=== PATIENT | male | born 1945 | race Caucasian/White ===

== ENCOUNTER 2017-02-05 15:34 | Inpatient (IN) | payer MEDICARE, OTHER ==
[~2017-02-05] VITALS: Ht 174.6 cm; Wt 117.3 kg
[~2017-02-05 15:34] MED LIST: ASPI-556 PO; CHOL200016 PO; DOCU100C19 PO; FOLI1 PO; LISI-662 PO; METF500T4 PO; SIMV-260 PO; SITA100 PO; TRIF10 PO; VERA240SR PO
[2017-02-05 15:50] VITALS: BP 126/69
[2017-02-05] MEDS ORDERED: MAGNESIUM OXIDE 400 MG TABLET PO PRN (18:00)
[2017-02-05] MEDS ORDERED: POTASSIUM CHL 10 MEQ/WATER 50 ML IV PRN (18:00)
[2017-02-05] MEDS ORDERED: DEXTROSE 50%-WATER 25 GM/50 ML SYRINGE IVP PRN (18:00)
[2017-02-05] MEDS ORDERED: ALBUTEROL SULFATE 2.5 MG/0.5 ML NEB SOLUTION NEB PRN (18:00)
[2017-02-05] MEDS ORDERED: MAGNESIUM SULFATE 4 GM/WATER 100 ML IV PRN (18:00)
[2017-02-05] MEDS ORDERED: POTASSIUM CHLORIDE 20 MEQ ER TABLET PO PRN (18:00)
[2017-02-05] MEDS ORDERED: MAGNESIUM SULFATE 2 GM in DEXTROSE 5%-WATER 50 ML IV PRN (18:00)
[2017-02-05 18:12] LABS: BASOPHILS % (AUTO) 0.4 % (0.0-2.0); EOSINOPHILS % (AUTO) 3.1 % (1.0-6.0); HEMATOCRIT 42.7 % (41-53); HEMOGLOBIN 14.5 g/dL (13.5-17.5); LYMPHOCYTES # (AUTO) 1.5 K/uL (1.0-4.8); LYMPHOCYTES % (AUTO) 22.4 % (22.0-44.0); MEAN CORPUSCULAR HEMOGLOBIN 31.7 pg (26.0-34.0); MEAN CORPUSCULAR VOLUME 93 fL (80-100); MONOCYTES # (AUTO) 0.7 K/uL (0.1-1.0); MONOCYTES % (AUTO) 10.3 % (2.0-9.0); NEUTROPHILS # (AUTO) 4.3 K/uL (1.8-7.7); NEUTROPHILS % (AUTO) 63.8 % (40.0-70.0); PLATELET COUNT (AUTO) 154 K/uL (150-450); RED BLOOD CELL COUNT(AUTO) 4.58 MIL/uL (4.50-5.90); RED CELL DISTRIBUTION WIDTH 13.8 % (11.5-14.5); WHITE BLOOD COUNT (AUTO) 6.7 K/uL (4.5-11.0)
[2017-02-05] MEDS: INSULIN ASPART 100 UNITS/ML SQ PRN ×2 (18:14→20:06)
[2017-02-05 18:17] LABS: ANION GAP 8 mmol/L (8-16); CALCIUM, TOTAL 8.9 mg/dL (8.8-10.5); CARBON DIOXIDE 28 mmol/L (22-29); CHLORIDE 106 mmol/L (98-107); CREATININE 1.19 mg/dL (0.60-1.30); GLOMERULAR FILTR. RATE CALC > 60 mL/min (>60); POTASSIUM 3.8 mmol/L (3.5-5.1); SODIUM SERUM 142 mmol/L (136-145); UREA NITROGEN, BLOOD 18 mg/dL (7-18)
[2017-02-05 18:22] LABS: ALBUMIN 3.3 g/dL (3.4-5.0); PHOSPHORUS 4.4 mg/dL (2.5-4.9)
[2017-02-05] MEDS: MethylPREDNISolone SOD SUCC 40 MG/ML VIAL IVP SCH ×2 (18:23→23:10)
[2017-02-05 19:35] VITALS: BP 119/73
[2017-02-05] MEDS ORDERED: PERMETHRIN 5% 60 GM CREAM TP ONE (20:00)
[2017-02-05] MEDS: INSULIN DETEMIR 100 UNITS/ML SQ SCH (20:05)
[2017-02-06] VITALS (7 sets, daily range): BP systolic 114–137; BP diastolic 54–76
[2017-02-06] MEDS: MethylPREDNISolone SOD SUCC 40 MG/ML VIAL IVP SCH ×3 (05:13→17:41)
[2017-02-06] MEDS: INSULIN ASPART 100 UNITS/ML SQ PRN ×4 (05:16→20:40)
[2017-02-06] MEDS: VERAPAMIL HCL 240 MG ER TABLET PO SCH (08:26)
[2017-02-06] MEDS: CHOLECALCIFEROL (VIT D3) 2,000 UNITS TABLET PO SCH (08:26)
[2017-02-06] MEDS: LISINOPRIL 20 MG TABLET PO SCH (08:26)
[2017-02-06] MEDS: TRIFLUOPERAZINE HCL 10 MG TABLET PO SCH (08:26)
[2017-02-06] MEDS: DOCUSATE SODIUM 100 MG CAPSULE PO SCH ×2 (08:26→20:06)
[2017-02-06] MEDS: ASPIRIN 81 MG EC TABLET PO SCH (08:26)
[2017-02-06] MEDS: FOLIC ACID 1 MG TABLET PO SCH (08:26)
[2017-02-06] MEDS: ENOXAPARIN SODIUM 40 MG/0.4 ML PF SYRINGE SQ SCH (08:26)
[2017-02-06] MEDS: SitaGLIPtin PHOSPHATE 100 MG TABLET PO SCH (08:26)
[2017-02-06] MEDS: MetFORMIN HCL 500 MG TABLET PO SCH ×2 (08:31→17:32)
[2017-02-06 14:44] LABS: GLUCOSE COMMENT 1 Received Meds; GLUCOSE,POINT OF CARE 160 MG/DL (70-110)
[2017-02-06 14:44] LABS: GLUCOSE,POINT OF CARE 176 MG/DL (70-110)
[2017-02-06 14:44] LABS: GLUCOSE,POINT OF CARE 235 MG/DL (70-110)
[2017-02-06 14:44] LABS: GLUCOSE COMMENT 1 Received Meds; GLUCOSE,POINT OF CARE 260 MG/DL (70-110)
[2017-02-06] MEDS: SIMVASTATIN 20 MG TABLET PO SCH (20:04)
[2017-02-06] MEDS: INSULIN DETEMIR 100 UNITS/ML SQ SCH (20:41)
[2017-02-07] MEDS: MethylPREDNISolone SOD SUCC 40 MG/ML VIAL IVP SCH ×4 (01:05→17:55)
[2017-02-07 04:47] VITALS: BP 110/61
[2017-02-07] MEDS: INSULIN ASPART 100 UNITS/ML SQ PRN ×4 (06:21→21:06)
[2017-02-07 07:43] LABS: GLUCOSE COMMENT 1 Received Meds; GLUCOSE,POINT OF CARE 241 MG/DL (70-110)
[2017-02-07 07:43] LABS: GLUCOSE COMMENT 1 Received Meds; GLUCOSE,POINT OF CARE 278 MG/DL (70-110)
[2017-02-07 07:43] LABS: GLUCOSE COMMENT 1 Received Meds; GLUCOSE,POINT OF CARE 235 MG/DL (70-110)
[2017-02-07 08:01] VITALS: BP 102/66
[2017-02-07] MEDS: SitaGLIPtin PHOSPHATE 100 MG TABLET PO SCH (08:18)
[2017-02-07] MEDS: CHOLECALCIFEROL (VIT D3) 2,000 UNITS TABLET PO SCH (08:18)
[2017-02-07] MEDS: TRIFLUOPERAZINE HCL 10 MG TABLET PO SCH (08:18)
[2017-02-07] MEDS: MetFORMIN HCL 500 MG TABLET PO SCH ×2 (08:18→17:55)
[2017-02-07] MEDS: DOCUSATE SODIUM 100 MG CAPSULE PO SCH ×2 (08:19→20:57)
[2017-02-07] MEDS: LISINOPRIL 20 MG TABLET PO SCH (08:19)
[2017-02-07] MEDS: VERAPAMIL HCL 240 MG ER TABLET PO SCH (08:19)
[2017-02-07] MEDS: ASPIRIN 81 MG EC TABLET PO SCH (08:19)
[2017-02-07] MEDS: FOLIC ACID 1 MG TABLET PO SCH (08:19)
[2017-02-07] MEDS: ENOXAPARIN SODIUM 40 MG/0.4 ML PF SYRINGE SQ SCH (08:20)
[2017-02-07 11:25] VITALS: BP 103/88
[2017-02-07] MEDS ORDERED: IVERMECTIN 3 MG TABLET PO ONE (14:45)
[2017-02-07 15:28] VITALS: BP 132/63
[2017-02-07 19:40] VITALS: BP 133/81
[2017-02-07] MEDS: SIMVASTATIN 20 MG TABLET PO SCH (21:00)
[2017-02-07] MEDS: INSULIN DETEMIR 100 UNITS/ML SQ SCH (21:05)
[2017-02-07 23:46] VITALS: BP 128/74
[2017-02-08] MEDS: MethylPREDNISolone SOD SUCC 40 MG/ML VIAL IVP SCH ×5 (00:53→23:21)
[2017-02-08 01:02] LABS: GLUCOSE COMMENT 1 Received Meds; GLUCOSE,POINT OF CARE 187 MG/DL (70-110)
[2017-02-08 01:07] LABS: GLUCOSE COMMENT 1 Received Meds; GLUCOSE,POINT OF CARE 266 MG/DL (70-110)
[2017-02-08 05:04] VITALS: BP 120/77
[2017-02-08] MEDS: INSULIN ASPART 100 UNITS/ML SQ PRN ×4 (06:26→20:42)
[2017-02-08 07:03] LABS: ALANINE AMINOTRANSFERASE 18 U/L (12-78); ALBUMIN 3.2 g/dL (3.4-5.0); ANION GAP 9 mmol/L (8-16); ASPARTATE AMINOTRANSFERASE 12 U/L (15-37); BILIRUBIN,TOTAL 0.2 mg/dL (0.1-1.0); CALCIUM, TOTAL 8.9 mg/dL (8.8-10.5); CARBON DIOXIDE 26 mmol/L (22-29); CHLORIDE 102 mmol/L (98-107); CREATININE 0.99 mg/dL (0.60-1.30); GLOMERULAR FILTR. RATE CALC > 60 mL/min (>60); POTASSIUM 4.8 mmol/L (3.5-5.1); SODIUM SERUM 137 mmol/L (136-145); TOTAL PROTEIN, SERUM 6.5 g/dL (6.4-8.2); UREA NITROGEN, BLOOD 22 mg/dL (7-18)
[2017-02-08 07:33] LABS: GLUCOSE COMMENT 1 Received Meds; GLUCOSE,POINT OF CARE 273 MG/DL (70-110)
[2017-02-08 07:46] LABS: EOSINOPHILS % (AUTO) 0 % (1.0-6.0); HEMATOCRIT 44.6 % (41-53); HEMOGLOBIN 15.1 g/dL (13.5-17.5); LYMPHOCYTES % (AUTO) 4.5 % (22.0-44.0); MEAN CORPUSCULAR HEMOGLOBIN 31.5 pg (26.0-34.0); MEAN CORPUSCULAR HGB CONC 33.9 G/dL (31.0-37.0); MEAN CORPUSCULAR VOLUME 93 fL (80-100); MONOCYTES % (AUTO) 3.2 % (2.0-9.0); PLATELET COUNT (AUTO) 178 K/uL (150-450); RED CELL DISTRIBUTION WIDTH 13.3 % (11.5-14.5); WHITE BLOOD COUNT (AUTO) 14.2 K/uL (4.5-11.0)
[2017-02-08 07:47] LABS: BASOPHILS % (AUTO) 0.1 % (0.0-2.0); LYMPHOCYTES # (AUTO) 0.6 K/uL (1.0-4.8); MONOCYTES # (AUTO) 0.4 K/uL (0.1-1.0); NEUTROPHILS # (AUTO) 13.1 K/uL (1.8-7.7)
[2017-02-08 07:52] LABS: NEUTROPHILS % (AUTO) 92.2 % (40.0-70.0)
[2017-02-08 07:54] VITALS: BP 123/70
[2017-02-08] MEDS: LISINOPRIL 20 MG TABLET PO SCH (07:59)
[2017-02-08] MEDS: ENOXAPARIN SODIUM 40 MG/0.4 ML PF SYRINGE SQ SCH (07:59)
[2017-02-08] MEDS: TRIFLUOPERAZINE HCL 10 MG TABLET PO SCH (08:00)
[2017-02-08] MEDS: FOLIC ACID 1 MG TABLET PO SCH (08:01)
[2017-02-08] MEDS: SitaGLIPtin PHOSPHATE 100 MG TABLET PO SCH (08:01)
[2017-02-08] MEDS: DOCUSATE SODIUM 100 MG CAPSULE PO SCH ×2 (08:01→20:46)
[2017-02-08] MEDS: ASPIRIN 81 MG EC TABLET PO SCH (08:01)
[2017-02-08] MEDS: MetFORMIN HCL 500 MG TABLET PO SCH ×2 (08:01→17:17)
[2017-02-08] MEDS: CHOLECALCIFEROL (VIT D3) 2,000 UNITS TABLET PO SCH (08:01)
[2017-02-08 11:18] VITALS: BP 94/55
[2017-02-08 15:50] VITALS: BP 100/53
[2017-02-08 19:21] VITALS: BP 129/93
[2017-02-08] MEDS ORDERED: PERMETHRIN 5% 60 GM CREAM TP ONE (20:00)
[2017-02-08] MEDS: SIMVASTATIN 20 MG TABLET PO SCH (20:40)
[2017-02-08] MEDS: INSULIN DETEMIR 100 UNITS/ML SQ SCH (20:42)
[2017-02-08] MEDS: NICOTINE 14 MG/24 HOUR PATCH TD SCH (21:32)
[2017-02-08 23:27] VITALS: BP 120/74
[2017-02-09 04:11] VITALS: BP 102/54
[2017-02-09] MEDS: INSULIN ASPART 100 UNITS/ML SQ PRN ×4 (05:09→22:23)
[2017-02-09] MEDS: MethylPREDNISolone SOD SUCC 40 MG/ML VIAL IVP SCH ×3 (05:10→17:59)
[2017-02-09 05:18] LABS: GLUCOSE COMMENT 1 Received Meds; GLUCOSE,POINT OF CARE 225 MG/DL (70-110)
[2017-02-09 05:19] LABS: GLUCOSE COMMENT 1 Received Meds; GLUCOSE,POINT OF CARE 211 MG/DL (70-110)
[2017-02-09 05:19] LABS: GLUCOSE COMMENT 1 Received Meds; GLUCOSE,POINT OF CARE 238 MG/DL (70-110)
[2017-02-09 05:19] LABS: GLUCOSE COMMENT 1 Received Meds; GLUCOSE,POINT OF CARE 283 MG/DL (70-110)
[2017-02-09 07:47] VITALS: BP 118/56
[2017-02-09] MEDS: ENOXAPARIN SODIUM 40 MG/0.4 ML PF SYRINGE SQ SCH (08:44)
[2017-02-09] MEDS: TRIFLUOPERAZINE HCL 10 MG TABLET PO SCH (08:45)
[2017-02-09] MEDS: LISINOPRIL 20 MG TABLET PO SCH (08:45)
[2017-02-09] MEDS: MetFORMIN HCL 500 MG TABLET PO SCH ×2 (08:45→17:59)
[2017-02-09] MEDS: CHOLECALCIFEROL (VIT D3) 2,000 UNITS TABLET PO SCH (08:45)
[2017-02-09] MEDS: FOLIC ACID 1 MG TABLET PO SCH (08:45)
[2017-02-09] MEDS: SitaGLIPtin PHOSPHATE 100 MG TABLET PO SCH (08:45)
[2017-02-09] MEDS: ASPIRIN 81 MG EC TABLET PO SCH (08:45)
[2017-02-09] MEDS: DOCUSATE SODIUM 100 MG CAPSULE PO SCH ×2 (08:46→22:21)
[2017-02-09] MEDS: NICOTINE 14 MG/24 HOUR PATCH TD SCH (08:46)
[2017-02-09 11:46] VITALS: BP 127/87
[2017-02-09 16:05] VITALS: BP 127/64
[2017-02-09 19:48] VITALS: BP 138/87
[2017-02-09] MEDS: SIMVASTATIN 20 MG TABLET PO SCH (22:21)
[2017-02-09] MEDS: INSULIN DETEMIR 100 UNITS/ML SQ SCH (22:22)
[2017-02-10] MEDS: MethylPREDNISolone SOD SUCC 40 MG/ML VIAL IVP SCH ×3 (00:05→11:06)
[2017-02-10 00:19] VITALS: BP 133/61
[2017-02-10 03:52] LABS: GLUCOSE,POINT OF CARE 273 MG/DL (70-110)
[2017-02-10 03:53] LABS: GLUCOSE COMMENT 1 Received Meds; GLUCOSE,POINT OF CARE 216 MG/DL (70-110)
[2017-02-10 03:53] LABS: GLUCOSE COMMENT 1 Received Meds; GLUCOSE,POINT OF CARE 218 MG/DL (70-110)
[2017-02-10 03:53] LABS: GLUCOSE COMMENT 1 Received Meds; GLUCOSE,POINT OF CARE 246 MG/DL (70-110)
[2017-02-10 05:25] VITALS: BP 134/89
[2017-02-10] MEDS: INSULIN ASPART 100 UNITS/ML SQ PRN ×2 (06:32→11:07)
[2017-02-10 06:37] LABS: BASOPHILS # (AUTO) 0.01 K/uL (0.00-0.20); BASOPHILS % (AUTO) 0.1 % (0.0-2.0); EOSINOPHILS % (AUTO) 0.02 % (1.0-6.0); HEMATOCRIT 47.4 % (41-53); LYMPHOCYTES # (AUTO) 0.7 K/uL (1.0-4.8); MEAN CORPUSCULAR HEMOGLOBIN 31.2 pg (26.0-34.0); MEAN CORPUSCULAR HGB CONC 33.7 G/dL (31.0-37.0); MEAN CORPUSCULAR VOLUME 92 fL (80-100); MONOCYTES # (AUTO) 0.5 K/uL (0.1-1.0); MONOCYTES % (AUTO) 4.9 % (2.0-9.0); NEUTROPHILS # (AUTO) 9.1 K/uL (1.8-7.7); PLATELET COUNT (AUTO) 163 K/uL (150-450); RED BLOOD CELL COUNT(AUTO) 5.13 MIL/uL (4.50-5.90); RED CELL DISTRIBUTION WIDTH 13.3 % (11.5-14.5); WHITE BLOOD COUNT (AUTO) 10.4 K/uL (4.5-11.0)
[2017-02-10 06:38] LABS: GLUCOSE,POINT OF CARE 300 MG/DL (70-110)
[2017-02-10 06:39] LABS: NEUTROPHILS % (AUTO) 88.1 % (40.0-70.0)
[2017-02-10 07:05] LABS: ALANINE AMINOTRANSFERASE 15 U/L (12-78); ANION GAP 8 mmol/L (8-16); ASPARTATE AMINOTRANSFERASE 7 U/L (15-37); BILIRUBIN,TOTAL 0.4 mg/dL (0.1-1.0); CALCIUM, TOTAL 8.6 mg/dL (8.8-10.5); CARBON DIOXIDE 27 mmol/L (22-29); CHLORIDE 99 mmol/L (98-107); CREATININE 1.07 mg/dL (0.60-1.30); GLOMERULAR FILTR. RATE CALC > 60 mL/min (>60); POTASSIUM 4.2 mmol/L (3.5-5.1); SODIUM SERUM 134 mmol/L (136-145); TOTAL PROTEIN, SERUM 6.2 g/dL (6.4-8.2); UREA NITROGEN, BLOOD 27 mg/dL (7-18)
[2017-02-10 08:04] VITALS: BP 140/82
[2017-02-10] MEDS: MetFORMIN HCL 500 MG TABLET PO SCH (08:31)
[2017-02-10] MEDS: FOLIC ACID 1 MG TABLET PO SCH (08:31)
[2017-02-10] MEDS: LISINOPRIL 20 MG TABLET PO SCH (08:31)
[2017-02-10] MEDS: ASPIRIN 81 MG EC TABLET PO SCH (08:31)
[2017-02-10] MEDS: DOCUSATE SODIUM 100 MG CAPSULE PO SCH (08:31)
[2017-02-10] MEDS: TRIFLUOPERAZINE HCL 10 MG TABLET PO SCH (08:32)
[2017-02-10] MEDS: CHOLECALCIFEROL (VIT D3) 2,000 UNITS TABLET PO SCH (08:32)
[2017-02-10] MEDS: SitaGLIPtin PHOSPHATE 100 MG TABLET PO SCH (08:32)
[2017-02-10] MEDS: ENOXAPARIN SODIUM 40 MG/0.4 ML PF SYRINGE SQ SCH (08:33)
[2017-02-10] MEDS: NICOTINE 14 MG/24 HOUR PATCH TD SCH (08:33)
[2017-02-10] MEDS ORDERED: METF500T4 PO (11:19)
[2017-02-11 04:42] LABS: GLUCOSE COMMENT 1 Received Meds; GLUCOSE,POINT OF CARE 323 MG/DL (70-110)
== END 2017-02-10 13:45 | disposition home or self-care (01) | DRG 191 ==
LOC: 5S 15:50
PROVIDERS: ADMIT Internal Medicine; ATTEND Internal Medicine
DX: J44.1 Chronic obstructive pulmonary disease with (acute) exacerbation (principal); F20.0 Paranoid schizophrenia; I11.9 Hypertensive heart disease without heart failure; E11.65 Type 2 diabetes mellitus with hyperglycemia; Z68.41 Body mass index [BMI] 40.0-44.9, adult; B86 Scabies; E55.9 Vitamin D deficiency, unspecified; E66.01 Morbid (severe) obesity due to excess calories; K59.01 Slow transit constipation; F17.210 Nicotine dependence, cigarettes, uncomplicated; Z83.3 Family history of diabetes mellitus; Z79.82 Long term (current) use of aspirin; Z79.899 Other long term (current) drug therapy; Z88.3 Allergy status to other anti-infective agents; Z88.2 Allergy status to sulfonamides; Z88.8 Allergy status to other drugs, medicaments and biological substances; I45.9 Conduction disorder, unspecified; E78.5 Hyperlipidemia, unspecified; Z71.6 Tobacco abuse counseling
CPT/HCPCS: 82962; 83735; 84100; 93005; 93306; J1650; J2920

== ENCOUNTER 2017-05-19 13:34 | Inpatient (IN) | payer MEDICARE, OTHER ==
[~2017-05-19] VITALS: Ht 172.7 cm; Wt 100.2 kg
[2017-05-19 13:57] LABS: GLUCOSE,POINT OF CARE 173 MG/DL (70-110)
[2017-05-19 18:48] LABS: BASOPHILS % (AUTO) 0.1 % (0.0-2.0); EOSINOPHILS % (AUTO) 0.8 % (1.0-6.0); HEMATOCRIT 43.7 % (41-53); HEMOGLOBIN 14.8 g/dL (13.5-17.5); LYMPHOCYTES # (AUTO) 1.9 K/uL (1.0-4.8); LYMPHOCYTES % (AUTO) 16.1 % (22.0-44.0); MEAN CORPUSCULAR HEMOGLOBIN 30.7 pg (26.0-34.0); MEAN CORPUSCULAR HGB CONC 33.9 G/dL (31.0-37.0); MEAN CORPUSCULAR VOLUME 90 fL (80-100); MONOCYTES # (AUTO) 1.1 K/uL (0.1-1.0); MONOCYTES % (AUTO) 9.6 % (2.0-9.0); NEUTROPHILS # (AUTO) 8.4 K/uL (1.8-7.7); NEUTROPHILS % (AUTO) 73.4 % (40.0-70.0); PLATELET COUNT (AUTO) 305 K/uL (150-450); RED BLOOD CELL COUNT(AUTO) 4.84 MIL/uL (4.50-5.90); RED CELL DISTRIBUTION WIDTH 13.7 % (11.5-14.5)
[2017-05-19 19:01] LABS: ANION GAP 9 mmol/L (8-16); CALCIUM, TOTAL 8.9 mg/dL (8.8-10.5); CARBON DIOXIDE 30 mmol/L (22-29); CHLORIDE 104 mmol/L (98-107); CREATININE 0.97 mg/dL (0.60-1.30); GLOMERULAR FILTR. RATE CALC > 60 mL/min (>60); GLUCOSE,RANDOM 166 mg/dL (70-110); POTASSIUM 3.2 mmol/L (3.5-5.1); SODIUM SERUM 143 mmol/L (136-145); UREA NITROGEN, BLOOD 24 mg/dL (7-18)
[2017-05-19 19:14] LABS: ALANINE AMINOTRANSFERASE 19 U/L (12-78); ALKALINE PHOSPHATASE 104 U/L (46-116); AMMONIA 10 umol/L (11-32); ASPARTATE AMINOTRANSFERASE 12 U/L (15-37); BILIRUBIN,TOTAL 0.7 mg/dL (0.1-1.0); LIPASE 142 U/L (73-393); TROPONIN I < 0.02 ng/mL (0.00-0.05)
[2017-05-19 19:20] LABS: B-TYPE NATRIURETIC PEPTIDE 10 pg/mL (0-100)
[2017-05-19] MEDS ORDERED: POTASSIUM CHLORIDE 20 MEQ ER TABLET PO ONE (19:30)
[2017-05-19] MEDS ORDERED: ONDANSETRON HCL 4 MG/2 ML VIAL IVP PRN (20:15)
[2017-05-19] MEDS ORDERED: 0.9% SODIUM CHLORIDE 10 ML SYRINGE IVP PRN (20:15)
[2017-05-19] MEDS ORDERED: SODIUM CHLORIDE 0.9% 1,000 ML IV ONE (20:15)
[2017-05-19] MEDS ORDERED: ACETAMINOPHEN 325 MG TABLET PO PRN (20:15)
[2017-05-19 20:30] VITALS: BP 150/79
[2017-05-19] MEDS ORDERED: DEXTROSE 50%-WATER 25 GM/50 ML SYRINGE IVP PRN (21:15)
[2017-05-19] MEDS: SODIUM CHLORIDE 0.9% 1,000 ML IV SCH (22:11)
[2017-05-19] MEDS: FOLIC ACID 1 MG TABLET PO SCH (22:12)
[2017-05-19] MEDS: ASPIRIN 81 MG EC TABLET PO SCH (22:12)
[2017-05-19] MEDS: SIMVASTATIN 20 MG TABLET PO SCH (22:12)
[2017-05-19] MEDS: INSULIN ASPART 100 UNITS/ML SQ PRN (22:37)
[2017-05-19] MEDS: SitaGLIPtin PHOSPHATE 100 MG TABLET PO SCH (23:07)
[2017-05-19 23:15] VITALS: BP 157/98
[2017-05-20 00:39] LABS: GLUCOMETER DEV NAME(LOC) 6N 1E; GLUCOSE,POINT OF CARE 229 MG/DL (70-110)
[2017-05-20 05:00] VITALS: BP 126/80
[2017-05-20 05:45] LABS: GLUCOMETER DEV NAME(LOC) 6N 1E; GLUCOSE,POINT OF CARE 163 MG/DL (70-110)
[2017-05-20] MEDS: SODIUM CHLORIDE 0.9% 1,000 ML IV SCH ×3 (06:47→21:58)
[2017-05-20 06:51] LABS: BASOPHILS % (AUTO) 0.3 % (0.0-2.0); EOSINOPHILS % (AUTO) 1.6 % (1.0-6.0); HEMATOCRIT 39.7 % (41-53); HEMOGLOBIN 13.4 g/dL (13.5-17.5); LYMPHOCYTES # (AUTO) 1.6 K/uL (1.0-4.8); LYMPHOCYTES % (AUTO) 19.4 % (22.0-44.0); MEAN CORPUSCULAR HEMOGLOBIN 30.7 pg (26.0-34.0); MEAN CORPUSCULAR HGB CONC 33.7 G/dL (31.0-37.0); MEAN CORPUSCULAR VOLUME 91 fL (80-100); MONOCYTES # (AUTO) 0.9 K/uL (0.1-1.0); MONOCYTES % (AUTO) 10.7 % (2.0-9.0); NEUTROPHILS # (AUTO) 5.5 K/uL (1.8-7.7); PLATELET COUNT (AUTO) 249 K/uL (150-450); RED BLOOD CELL COUNT(AUTO) 4.35 MIL/uL (4.50-5.90); RED CELL DISTRIBUTION WIDTH 13.4 % (11.5-14.5)
[2017-05-20 08:12] LABS: ANION GAP 9 mmol/L (8-16); CALCIUM, TOTAL 8.2 mg/dL (8.8-10.5); CARBON DIOXIDE 28 mmol/L (22-29); CHLORIDE 107 mmol/L (98-107); CREATININE 0.94 mg/dL (0.60-1.30); GLOMERULAR FILTR. RATE CALC > 60 mL/min (>60); GLUCOSE,RANDOM 151 mg/dL (70-110); POTASSIUM 3.1 mmol/L (3.5-5.1); SODIUM SERUM 144 mmol/L (136-145); UREA NITROGEN, BLOOD 18 mg/dL (7-18)
[2017-05-20] MEDS: SitaGLIPtin PHOSPHATE 100 MG TABLET PO SCH (08:58)
[2017-05-20] MEDS: CHOLECALCIFEROL (VIT D3) 2,000 UNITS TABLET PO SCH (08:58)
[2017-05-20] MEDS: TRIFLUOPERAZINE HCL 10 MG TABLET PO SCH (08:58)
[2017-05-20] MEDS: VERAPAMIL HCL 240 MG ER TABLET PO SCH (08:58)
[2017-05-20] MEDS: ASPIRIN 81 MG EC TABLET PO SCH (09:01)
[2017-05-20] MEDS: LISINOPRIL 20 MG TABLET PO SCH (09:01)
[2017-05-20 09:27] VITALS: BP 149/59
[2017-05-20 11:28] LABS: GLUCOMETER DEV NAME(LOC) PV 4E; GLUCOSE,POINT OF CARE 183 MG/DL (70-110)
[2017-05-20] MEDS: FOLIC ACID 1 MG TABLET PO SCH (11:52)
[2017-05-20] MEDS: INSULIN ASPART 100 UNITS/ML SQ PRN ×2 (11:58→21:57)
[2017-05-20 12:36] VITALS: BP 152/72
[2017-05-20 16:59] VITALS: BP 137/84
[2017-05-20 18:13] LABS: GLUCOMETER DEV NAME(LOC) PV 4E; GLUCOSE,POINT OF CARE 115 MG/DL (70-110)
[2017-05-20 20:19] VITALS: BP 142/89
[2017-05-20] MEDS: SIMVASTATIN 20 MG TABLET PO SCH (20:46)
[2017-05-20 23:17] VITALS: BP 129/65
[2017-05-21 00:08] LABS: GLUCOMETER DEV NAME(LOC) PV 4E; GLUCOSE,POINT OF CARE 165 MG/DL (70-110)
[2017-05-21 05:19] VITALS: BP 127/69
[2017-05-21] MEDS: INSULIN ASPART 100 UNITS/ML SQ PRN ×2 (05:44→18:25)
[2017-05-21 06:28] LABS: GLUCOMETER DEV NAME(LOC) PV 4E; GLUCOSE,POINT OF CARE 176 MG/DL (70-110)
[2017-05-21 07:12] LABS: ANION GAP 6 mmol/L (8-16); CALCIUM, TOTAL 8.1 mg/dL (8.8-10.5); CARBON DIOXIDE 30 mmol/L (22-29); CHLORIDE 105 mmol/L (98-107); CREATININE 1.01 mg/dL (0.60-1.30); GLOMERULAR FILTR. RATE CALC > 60 mL/min (>60); GLUCOSE,RANDOM 160 mg/dL (70-110); POTASSIUM 3.1 mmol/L (3.5-5.1); SODIUM SERUM 141 mmol/L (136-145); UREA NITROGEN, BLOOD 12 mg/dL (7-18)
[2017-05-21 08:14] VITALS: BP 144/95
[2017-05-21 08:29] LABS: BASOPHILS # (AUTO) 0.03 K/uL (0.00-0.20); BASOPHILS % (AUTO) 0.4 % (0.0-2.0); EOSINOPHILS # (AUTO) 0.09 K/uL (0.00-0.70); EOSINOPHILS % (AUTO) 1.19 % (1.0-6.0); HEMATOCRIT 41.9 % (41-53); HEMOGLOBIN 13.8 g/dL (13.5-17.5); LYMPHOCYTES # (AUTO) 1.9 K/uL (1.0-4.8); LYMPHOCYTES % (AUTO) 23.6 % (22.0-44.0); MEAN CORPUSCULAR HEMOGLOBIN 30.6 pg (26.0-34.0); MEAN CORPUSCULAR VOLUME 93 fL (80-100); MONOCYTES # (AUTO) 0.8 K/uL (0.1-1.0); MONOCYTES % (AUTO) 9.4 % (2.0-9.0); NEUTROPHILS # (AUTO) 5.2 K/uL (1.8-7.7); NEUTROPHILS % (AUTO) 65.5 % (40.0-70.0); PLATELET COUNT (AUTO) 228 K/uL (150-450); RED BLOOD CELL COUNT(AUTO) 4.52 MIL/uL (4.50-5.90); RED CELL DISTRIBUTION WIDTH 13.5 % (11.5-14.5)
[2017-05-21] MEDS: CHOLECALCIFEROL (VIT D3) 2,000 UNITS TABLET PO SCH (10:00)
[2017-05-21] MEDS: TRIFLUOPERAZINE HCL 10 MG TABLET PO SCH (10:08)
[2017-05-21] MEDS: VERAPAMIL HCL 240 MG ER TABLET PO SCH (10:08)
[2017-05-21] MEDS: LISINOPRIL 20 MG TABLET PO SCH (10:08)
[2017-05-21] MEDS: FOLIC ACID 1 MG TABLET PO SCH (10:08)
[2017-05-21] MEDS: SitaGLIPtin PHOSPHATE 100 MG TABLET PO SCH (10:08)
[2017-05-21] MEDS: ASPIRIN 81 MG EC TABLET PO SCH (10:08)
[2017-05-21 12:36] VITALS: BP 139/103
[2017-05-21] MEDS: SODIUM CHLORIDE 0.9% 1,000 ML IV SCH (16:46)
[2017-05-21 16:47] VITALS: BP 138/78
[2017-05-21] MEDS: SIMVASTATIN 20 MG TABLET PO SCH (19:45)
[2017-05-21 20:13] VITALS: BP 146/91
[2017-05-21 22:38] LABS: GLUCOMETER DEV NAME(LOC) PV 4E; GLUCOSE,POINT OF CARE 136 MG/DL (70-110)
[2017-05-21 22:38] LABS: GLUCOMETER DEV NAME(LOC) PV 4E; GLUCOSE,POINT OF CARE 141 MG/DL (70-110)
[2017-05-21 22:38] LABS: GLUCOMETER DEV NAME(LOC) PV 4E; GLUCOSE,POINT OF CARE 120 MG/DL (70-110)
[2017-05-22 00:11] VITALS: BP 142/73
[2017-05-22 04:22] VITALS: BP 132/81
[2017-05-22] MEDS: INSULIN ASPART 100 UNITS/ML SQ PRN ×3 (05:55→21:01)
[2017-05-22 06:09] LABS: GLUCOMETER DEV NAME(LOC) PV 4E; GLUCOSE,POINT OF CARE 181 MG/DL (70-110)
[2017-05-22 06:34] LABS: BASOPHILS % (AUTO) 0.5 % (0.0-2.0); HEMOGLOBIN 14.6 g/dL (13.5-17.5); LYMPHOCYTES # (AUTO) 1.6 K/uL (1.0-4.8); MEAN CORPUSCULAR HEMOGLOBIN 30.6 pg (26.0-34.0); MEAN CORPUSCULAR HGB CONC 33.9 G/dL (31.0-37.0); MEAN CORPUSCULAR VOLUME 90 fL (80-100); MONOCYTES # (AUTO) 0.6 K/uL (0.1-1.0); MONOCYTES % (AUTO) 7.3 % (2.0-9.0); NEUTROPHILS # (AUTO) 6.4 K/uL (1.8-7.7); NEUTROPHILS % (AUTO) 73.2 % (40.0-70.0); PLATELET COUNT (AUTO) 273 K/uL (150-450); RED BLOOD CELL COUNT(AUTO) 4.77 MIL/uL (4.50-5.90); RED CELL DISTRIBUTION WIDTH 13.4 % (11.5-14.5)
[2017-05-22 07:01] LABS: ANION GAP 8 mmol/L (8-16); CALCIUM, TOTAL 8.3 mg/dL (8.8-10.5); CARBON DIOXIDE 29 mmol/L (22-29); CHLORIDE 103 mmol/L (98-107); CREATININE 0.88 mg/dL (0.60-1.30); GLOMERULAR FILTR. RATE CALC > 60 mL/min (>60); GLUCOSE,RANDOM 130 mg/dL (70-110); POTASSIUM 3.4 mmol/L (3.5-5.1); SODIUM SERUM 140 mmol/L (136-145); UREA NITROGEN, BLOOD 9 mg/dL (7-18)
[2017-05-22 08:05] VITALS: BP 125/71
[2017-05-22] MEDS: VERAPAMIL HCL 240 MG ER TABLET PO SCH (10:43)
[2017-05-22] MEDS: ASPIRIN 81 MG EC TABLET PO SCH (10:43)
[2017-05-22] MEDS: LISINOPRIL 20 MG TABLET PO SCH (10:43)
[2017-05-22] MEDS: TRIFLUOPERAZINE HCL 10 MG TABLET PO SCH (10:44)
[2017-05-22] MEDS: FOLIC ACID 1 MG TABLET PO SCH (10:44)
[2017-05-22] MEDS: CHOLECALCIFEROL (VIT D3) 2,000 UNITS TABLET PO SCH (10:44)
[2017-05-22] MEDS: SitaGLIPtin PHOSPHATE 100 MG TABLET PO SCH (10:44)
[2017-05-22 11:33] VITALS: BP 152/91
[2017-05-22 16:05] VITALS: BP 145/85
[2017-05-22 16:37] LABS: GLUCOMETER DEV NAME(LOC) PV 4E; GLUCOSE,POINT OF CARE 149 MG/DL (70-110)
[2017-05-22] MEDS: SIMVASTATIN 20 MG TABLET PO SCH (20:58)
[2017-05-23 00:08] LABS: GLUCOMETER DEV NAME(LOC) PV 4E; GLUCOSE,POINT OF CARE 140 MG/DL (70-110)
[2017-05-23 00:08] LABS: GLUCOMETER DEV NAME(LOC) PV 4E; GLUCOSE,POINT OF CARE 231 MG/DL (70-110)
[2017-05-23 00:09] VITALS: BP 144/81
[2017-05-23 05:37] LABS: GLUCOMETER DEV NAME(LOC) PV 4E; GLUCOSE,POINT OF CARE 130 MG/DL (70-110)
[2017-05-23 05:55] VITALS: BP 142/81
[2017-05-23 07:49] VITALS: BP 132/83
[2017-05-23] MEDS: TRIFLUOPERAZINE HCL 10 MG TABLET PO SCH (10:04)
[2017-05-23] MEDS: FOLIC ACID 1 MG TABLET PO SCH (10:04)
[2017-05-23] MEDS: ASPIRIN 81 MG EC TABLET PO SCH (10:04)
[2017-05-23] MEDS: LISINOPRIL 20 MG TABLET PO SCH (10:05)
[2017-05-23] MEDS: CHOLECALCIFEROL (VIT D3) 2,000 UNITS TABLET PO SCH (10:05)
[2017-05-23] MEDS: VERAPAMIL HCL 240 MG ER TABLET PO SCH (10:05)
[2017-05-23] MEDS: SitaGLIPtin PHOSPHATE 100 MG TABLET PO SCH (10:05)
[2017-05-23 11:10] VITALS: BP 143/84
[2017-05-23 11:58] LABS: GLUCOMETER DEV NAME(LOC) PV 4E; GLUCOSE,POINT OF CARE 163 MG/DL (70-110)
[2017-05-23] MEDS: INSULIN ASPART 100 UNITS/ML SQ PRN (12:28)
[2017-05-23 15:40] VITALS: BP 129/76
[2017-05-23 19:52] LABS: GLUCOMETER DEV NAME(LOC) PV 4E; GLUCOSE,POINT OF CARE 132 MG/DL (70-110)
== END 2017-05-23 19:40 | DRG 392 ==
LOC: EMS 13:37 → 6N 20:06 → 4E 05-20 06:49
PROVIDERS: ADMIT Internal Medicine; ATTEND Internal Medicine
DX: K52.9 Noninfective gastroenteritis and colitis, unspecified (principal); J44.9 Chronic obstructive pulmonary disease, unspecified; F20.9 Schizophrenia, unspecified; E11.9 Type 2 diabetes mellitus without complications; E78.00 Pure hypercholesterolemia, unspecified; B88.2 Other arthropod infestations; E78.5 Hyperlipidemia, unspecified; E86.0 Dehydration; F17.210 Nicotine dependence, cigarettes, uncomplicated; I10 Essential (primary) hypertension; Z88.2 Allergy status to sulfonamides; Z79.84 Long term (current) use of oral hypoglycemic drugs; Z79.82 Long term (current) use of aspirin; Z88.1 Allergy status to other antibiotic agents; Z79.899 Other long term (current) drug therapy
CPT/HCPCS: 74018; 76700; 82962; 83735; 87045; 87081; 87206; 87329; 89055; 97161; 97165; 99285; G0480; J7030

== ENCOUNTER 2017-11-10 18:08 | Inpatient (IN) | payer MEDICARE, MEDICAID ==
[~2017-11-10] VITALS: Ht 172.7 cm; Wt 99.5 kg
[~2017-11-10 18:08] MED LIST changes: +ASPI-1182 PO; -ASPI-556 PO; -CHOL200016 PO; -DOCU100C19 PO; +DSS100 PO; -FOLI1 PO; -METF500T4 PO; +METF500T6 PO; +VERA120 PO; -VERA240SR PO; +VITAD1000 PO
[2017-11-10] MEDS ORDERED: HALOPERIDOL 5 MG TABLET PO PRN ×2 (18:45→20:15)
[2017-11-10] MEDS ORDERED: LORazepam 2 MG TABLET PO PRN ×2 (18:45→20:15)
[2017-11-10] MEDS ORDERED: ZOLPIDEM TARTRATE 10 MG TABLET PO PRN ×2 (18:45→20:15)
[2017-11-10 19:00] VITALS: BP 125/75
[2017-11-10 21:03] LABS: GLUCOMETER DEV NAME(LOC) BV2S 2; GLUCOSE,POINT OF CARE 173 MG/DL (70-110)
[2017-11-10] MEDS ORDERED: ASPIRIN 81 MG CHEWABLE TABLET PO ONE (22:30)
[2017-11-10] MEDS ORDERED: DOCUSATE SODIUM 100 MG CAPSULE PO PRN (22:30)
[2017-11-10] MEDS ORDERED: DOCUSATE SODIUM 100 MG CAPSULE PO SCH (22:30)
[2017-11-10] MEDS ORDERED: ALBUTEROL SULFATE HFA 90 MCG/PUFF 8 GM INHALER IH PRN (22:30)
[2017-11-11 00:28] VITALS: BP 132/67
[2017-11-11] MEDS: MetFORMIN HCL 500 MG TABLET PO SCH ×2 (07:03→16:23)
[2017-11-11 07:28] LABS: GLUCOMETER DEV NAME(LOC) BV2S 2; GLUCOSE,POINT OF CARE 154 MG/DL (70-110)
[2017-11-11 08:08] LABS: BASOPHILS % (AUTO) 0.4 % (0.0-2.0); EOSINOPHILS % (AUTO) 3.2 % (1.0-6.0); HEMATOCRIT 39.2 % (41-53); HEMOGLOBIN 13.4 g/dL (13.5-17.5); LYMPHOCYTES # (AUTO) 1.1 K/uL (1.0-4.8); MEAN CORPUSCULAR HEMOGLOBIN 29.5 pg (26.0-34.0); MEAN CORPUSCULAR HGB CONC 34.2 G/dL (31.0-37.0); MEAN CORPUSCULAR VOLUME 86 fL (80-100); MONOCYTES # (AUTO) 0.5 K/uL (0.1-1.0); MONOCYTES % (AUTO) 10.2 % (2.0-9.0); NEUTROPHILS # (AUTO) 3.6 K/uL (1.8-7.7); NEUTROPHILS % (AUTO) 66.2 % (40.0-70.0); PLATELET COUNT (AUTO) 248 K/uL (150-450); RED BLOOD CELL COUNT(AUTO) 4.54 MIL/uL (4.50-5.90); RED CELL DISTRIBUTION WIDTH 13.8 % (11.5-14.5)
[2017-11-11 08:33] VITALS: BP 113/66
[2017-11-11 08:37] LABS: ALANINE AMINOTRANSFERASE 37 U/L (12-78); ALBUMIN 2.6 g/dL (3.4-5.0); ALKALINE PHOSPHATASE 216 U/L (46-116); ANION GAP 7 mmol/L (8-16); ASPARTATE AMINOTRANSFERASE 33 U/L (15-37); BILIRUBIN,TOTAL 0.5 mg/dL (0.1-1.0); CALCIUM, TOTAL 8.2 mg/dL (8.8-10.5); CARBON DIOXIDE 30 mmol/L (22-29); CHLORIDE 102 mmol/L (98-107); CHOL/HDL RATIO 5.4 (4.2-7.3); CHOLESTEROL 168 mg/dL (131-200); CREATININE 0.97 mg/dL (0.60-1.30); FREE T4 (FREE THYROXINE) 0.89 ng/dL (0.76-1.46); GLOMERULAR FILTR. RATE CALC > 60 mL/min (>60); GLUCOSE,RANDOM 164 mg/dL (70-110); HDL CHOLESTEROL 31 mg/dL (40-60); LDL CHOL (CALC.) 120 mg/dL (0-130); POTASSIUM 3.9 mmol/L (3.5-5.1); SODIUM SERUM 139 mmol/L (136-145); THYROID STIMULATING HORMONE 1.24 uIU/mL (0.36-3.74); TOTAL PROTEIN, SERUM 6.5 g/dL (6.4-8.2); TRIGLYCERIDES 85 mg/dL (15-150); UREA NITROGEN, BLOOD 15 mg/dL (7-18)
[2017-11-11] MEDS: ASPIRIN 81 MG EC TABLET PO SCH (08:49)
[2017-11-11] MEDS: DOCUSATE SODIUM 100 MG CAPSULE PO SCH ×2 (08:49→16:23)
[2017-11-11] MEDS: LISINOPRIL 20 MG TABLET PO SCH (08:49)
[2017-11-11] MEDS: CHOLECALCIFEROL (VIT D3) 1,000 UNITS TABLET PO SCH (08:49)
[2017-11-11] MEDS: ESCITALOPRAM OXALATE 10 MG TABLET PO SCH (08:53)
[2017-11-11 09:14] LABS: HEMOGLOBIN A1C 7.6 % (4.5-6.2)
[2017-11-11] MEDS ORDERED: ALBUTEROL SULFATE HFA 90 MCG/PUFF 8 GM INHALER IH PRN (10:15)
[2017-11-11] MEDS ORDERED: DOCUSATE SODIUM 100 MG CAPSULE PO PRN (10:15)
[2017-11-11] MEDS ORDERED: ACETAMINOPHEN 325 MG TABLET PO PRN (10:15)
[2017-11-11] MEDS ORDERED: IBUPROFEN 400 MG TABLET PO PRN (10:15)
[2017-11-11] MEDS ORDERED: MAGNESIUM HYDROXIDE SUSPENSION 30 ML UDCUP PO PRN (10:15)
[2017-11-11] MEDS ORDERED: MAG HYDROX/AL HYDROX/SIMETH ES 30 ML SUSPENSION UDCUP PO PRN (10:15)
[2017-11-11] MEDS ORDERED: PETROLATUM,WHITE 71 GM JELLY TP PRN (10:15)
[2017-11-11] MEDS ORDERED: ONDANSETRON HCL 4 MG TABLET PO PRN (10:15)
[2017-11-11 11:49] LABS: GLUCOMETER DEV NAME(LOC) BV2S 2; GLUCOSE,POINT OF CARE 166 MG/DL (70-110)
[2017-11-11 16:00] VITALS: BP 115/63
[2017-11-11 17:04] LABS: GLUCOMETER DEV NAME(LOC) BV2S 2; GLUCOSE,POINT OF CARE 130 MG/DL (70-110)
[2017-11-11] MEDS: SIMVASTATIN 20 MG TABLET PO SCH (20:18)
[2017-11-11] MEDS: TRIFLUOPERAZINE HCL 10 MG TABLET PO SCH (20:18)
[2017-11-12 05:46] VITALS: BP 117/69
[2017-11-12] MEDS: MetFORMIN HCL 500 MG TABLET PO SCH ×2 (07:06→17:00)
[2017-11-12 07:20] LABS: GLUCOMETER DEV NAME(LOC) BV2S 2; GLUCOSE,POINT OF CARE 147 MG/DL (70-110)
[2017-11-12 08:30] LABS: BASOPHILS % (AUTO) 0.4 % (0.0-2.0); EOSINOPHILS % (AUTO) 2.8 % (1.0-6.0); HEMATOCRIT 40.7 % (41-53); LYMPHOCYTES # (AUTO) 1.2 K/uL (1.0-4.8); MEAN CORPUSCULAR HEMOGLOBIN 29.8 pg (26.0-34.0); MEAN CORPUSCULAR HGB CONC 34.3 G/dL (31.0-37.0); MEAN CORPUSCULAR VOLUME 87 fL (80-100); MONOCYTES # (AUTO) 0.6 K/uL (0.1-1.0); MONOCYTES % (AUTO) 9.8 % (2.0-9.0); NEUTROPHILS # (AUTO) 4.4 K/uL (1.8-7.7); PLATELET COUNT (AUTO) 243 K/uL (150-450); RED BLOOD CELL COUNT(AUTO) 4.69 MIL/uL (4.50-5.90); RED CELL DISTRIBUTION WIDTH 14.1 % (11.5-14.5)
[2017-11-12 08:36] VITALS: BP 106/69
[2017-11-12] MEDS: NICOTINE 14 MG/24 HOUR PATCH TD SCH (09:00)
[2017-11-12 09:17] LABS: ALANINE AMINOTRANSFERASE 46 U/L (12-78); ALBUMIN 2.8 g/dL (3.4-5.0); ALKALINE PHOSPHATASE 264 U/L (46-116); ANION GAP 7 mmol/L (8-16); ASPARTATE AMINOTRANSFERASE 39 U/L (15-37); BILIRUBIN,TOTAL 0.5 mg/dL (0.1-1.0); CALCIUM, TOTAL 8.2 mg/dL (8.8-10.5); CARBON DIOXIDE 30 mmol/L (22-29); CHLORIDE 102 mmol/L (98-107); CHOL/HDL RATIO 5.7 (4.2-7.3); CHOLESTEROL 177 mg/dL (131-200); CREATININE 1.01 mg/dL (0.60-1.30); FERRITIN 113 ng/mL (26-388); GLOMERULAR FILTR. RATE CALC > 60 mL/min (>60); GLUCOSE,RANDOM 143 mg/dL (70-110); HDL CHOLESTEROL 31 mg/dL (40-60); LDL CHOL (CALC.) 125 mg/dL (0-130); POTASSIUM 4.2 mmol/L (3.5-5.1); SODIUM SERUM 139 mmol/L (136-145); THYROID STIMULATING HORMONE 2.08 uIU/mL (0.36-3.74); TOTAL PROTEIN, SERUM 6.7 g/dL (6.4-8.2); TRIGLYCERIDES 106 mg/dL (15-150); UREA NITROGEN, BLOOD 21 mg/dL (7-18)
[2017-11-12 09:24] LABS: % IRON SATURATION 28.2 % (30-44); HEMOGLOBIN A1C 6.9 % (4.5-6.2)
[2017-11-12] MEDS: ASPIRIN 81 MG EC TABLET PO SCH (09:24)
[2017-11-12] MEDS: CHOLECALCIFEROL (VIT D3) 1,000 UNITS TABLET PO SCH (09:24)
[2017-11-12] MEDS: LISINOPRIL 20 MG TABLET PO SCH (09:25)
[2017-11-12] MEDS: ESCITALOPRAM OXALATE 10 MG TABLET PO SCH (09:25)
[2017-11-12] MEDS: DOCUSATE SODIUM 100 MG CAPSULE PO SCH ×2 (09:25→17:00)
[2017-11-12 09:32] VITALS: BP 118/61
[2017-11-12 11:54] LABS: GLUCOMETER DEV NAME(LOC) BV2S 2; GLUCOSE,POINT OF CARE 143 MG/DL (70-110)
[2017-11-12 16:10] VITALS: BP 110/73
[2017-11-12 17:19] LABS: GLUCOMETER DEV NAME(LOC) BV2S 2; GLUCOSE,POINT OF CARE 134 MG/DL (70-110)
[2017-11-12 21:39] LABS: GLUCOMETER DEV NAME(LOC) BV2S 2; GLUCOSE,POINT OF CARE 160 MG/DL (70-110)
[2017-11-12] MEDS: SIMVASTATIN 20 MG TABLET PO SCH (21:41)
[2017-11-12] MEDS: TRIFLUOPERAZINE HCL 10 MG TABLET PO SCH (21:41)
[2017-11-13 06:29] LABS: GLUCOMETER DEV NAME(LOC) BV2S 2; GLUCOSE,POINT OF CARE 141 MG/DL (70-110)
[2017-11-13 06:48] VITALS: BP 120/82
[2017-11-13] MEDS: MetFORMIN HCL 500 MG TABLET PO SCH ×2 (07:06→16:36)
[2017-11-13 08:45] VITALS: BP 109/68
[2017-11-13] MEDS: CHOLECALCIFEROL (VIT D3) 1,000 UNITS TABLET PO SCH (08:49)
[2017-11-13] MEDS: DOCUSATE SODIUM 100 MG CAPSULE PO SCH ×2 (08:49→16:36)
[2017-11-13] MEDS: LISINOPRIL 20 MG TABLET PO SCH (08:49)
[2017-11-13] MEDS: ESCITALOPRAM OXALATE 10 MG TABLET PO SCH (08:49)
[2017-11-13] MEDS: ASPIRIN 81 MG EC TABLET PO SCH (08:50)
[2017-11-13] MEDS: NICOTINE 14 MG/24 HOUR PATCH TD SCH (08:50)
[2017-11-13 16:09] VITALS: BP 120/70
[2017-11-13 17:04] LABS: GLUCOMETER DEV NAME(LOC) BV2S 2; GLUCOSE,POINT OF CARE 141 MG/DL (70-110)
[2017-11-13] MEDS: TRIFLUOPERAZINE HCL 10 MG TABLET PO SCH (20:22)
[2017-11-13] MEDS: SIMVASTATIN 20 MG TABLET PO SCH (20:22)
[2017-11-14 00:43] VITALS: BP 108/62
[2017-11-14 06:29] LABS: GLUCOMETER DEV NAME(LOC) BV2S 2; GLUCOSE,POINT OF CARE 151 MG/DL (70-110)
[2017-11-14] MEDS: MetFORMIN HCL 500 MG TABLET PO SCH (07:00)
[2017-11-14 08:24] VITALS: BP 100/68
[2017-11-14] MEDS ORDERED: ESCI10TA54 PO (08:37)
[2017-11-14] MEDS ORDERED: TRIF10 PO (08:37)
[2017-11-14] MEDS ORDERED: ESCI10TA PO (08:42)
[2017-11-14] MEDS: NICOTINE 14 MG/24 HOUR PATCH TD SCH (09:00)
[2017-11-14] MEDS: ASPIRIN 81 MG EC TABLET PO SCH (09:59)
[2017-11-14] MEDS: LISINOPRIL 20 MG TABLET PO SCH (09:59)
[2017-11-14] MEDS: DOCUSATE SODIUM 100 MG CAPSULE PO SCH (09:59)
[2017-11-14] MEDS: ESCITALOPRAM OXALATE 10 MG TABLET PO SCH (09:59)
[2017-11-14] MEDS: CHOLECALCIFEROL (VIT D3) 1,000 UNITS TABLET PO SCH (09:59)
== END 2017-11-14 10:30 | DRG 885 ==
LOC: B2X 18:44 → B2S 18:44 → UNDOADMIN 18:44
DX: F20.0 Paranoid schizophrenia (principal); R45.851 Suicidal ideations; D64.9 Anemia, unspecified; E11.9 Type 2 diabetes mellitus without complications; E55.9 Vitamin D deficiency, unspecified; E78.00 Pure hypercholesterolemia, unspecified; E78.5 Hyperlipidemia, unspecified; F10.10 Alcohol abuse, uncomplicated; F19.10 Other psychoactive substance abuse, uncomplicated; F17.200 Nicotine dependence, unspecified, uncomplicated; F32.9 Major depressive disorder, single episode, unspecified; I10 Essential (primary) hypertension; J44.9 Chronic obstructive pulmonary disease, unspecified; K59.09 Other constipation; Z88.2 Allergy status to sulfonamides; Z88.8 Allergy status to other drugs, medicaments and biological substances; Z79.899 Other long term (current) drug therapy; Z79.82 Long term (current) use of aspirin; Z71.41 Alcohol abuse counseling and surveillance of alcoholic; Z71.51 Drug abuse counseling and surveillance of drug abuser; Z71.6 Tobacco abuse counseling
CPT/HCPCS: 82728; 83036; 83540; 83550; 84439; 84443

== ENCOUNTER 2018-03-09 13:48 | Inpatient (IN) | payer MEDICARE, MEDICAID ==
[~2018-03-09] VITALS: Ht 175.3 cm; Wt 93.2 kg
[~2018-03-09 13:48] MED LIST changes: +ESCI10TA PO; +ESCI10TA54 PO; +METF-960 PO; -METF500T6 PO; -SITA100 PO; -VERA120 PO
[2018-03-09] MEDS ORDERED: HALOPERIDOL 5 MG TABLET PO PRN (14:45)
[2018-03-09] MEDS ORDERED: ZOLPIDEM TARTRATE 10 MG TABLET PO PRN (14:45)
[2018-03-09] MEDS ORDERED: LORazepam 2 MG TABLET PO PRN (14:45)
[2018-03-09 14:51] VITALS: BP 106/71
[2018-03-09 16:10] VITALS: BP 123/71
[2018-03-09 17:03] LABS: GLUCOMETER DEV NAME(LOC) BV2N3; GLUCOSE,POINT OF CARE 168 MG/DL (70-110)
[2018-03-09] MEDS ORDERED: GuaiFENesin/D-METHORPHAN [SUGAR-FREE] 200-20MG/10 ML SYRUP UDCUP PO PRN (17:45)
[2018-03-09] MEDS ORDERED: MAGNESIUM HYDROXIDE SUSPENSION 30 ML UDCUP PO PRN (17:45)
[2018-03-09] MEDS ORDERED: DOCUSATE SODIUM 100 MG CAPSULE PO PRN (17:45)
[2018-03-09] MEDS ORDERED: MAG HYDROX/AL HYDROX/SIMETH ES 30 ML SUSPENSION UDCUP PO PRN (17:45)
[2018-03-09] MEDS ORDERED: IBUPROFEN 400 MG TABLET PO PRN (17:45)
[2018-03-09] MEDS ORDERED: CloNIDine HCL 0.1 MG TABLET PO PRN (17:45)
[2018-03-09] MEDS ORDERED: ACETAMINOPHEN 325 MG TABLET PO PRN (17:45)
[2018-03-09] MEDS ORDERED: ALBUTEROL SULFATE HFA 90 MCG/PUFF 8 GM INHALER IH PRN (17:45)
[2018-03-09] MEDS ORDERED: LOPERAMIDE HCL 2 MG CAPSULE PO PRN (17:45)
[2018-03-09] MEDS ORDERED: PETROLATUM,WHITE 71 GM JELLY TP PRN (17:45)
[2018-03-09] MEDS ORDERED: ONDANSETRON HCL 4 MG TABLET PO PRN (17:45)
[2018-03-09] MEDS ORDERED: NICOTINE 14 MG/24 HOUR PATCH TD PRN (17:45)
[2018-03-09] MEDS ORDERED: GLUCAGON,HUMAN RECOMBINANT 1 MG VIAL IM PRN (17:45)
[2018-03-09] MEDS ORDERED: PNEUMOCOCCAL VACCINE POLYVALENT 0.5 ML VIAL [PPSV23] IM ONE (18:00)
[2018-03-09] MEDS: SIMVASTATIN 20 MG TABLET PO SCH (20:13)
[2018-03-09] MEDS: TRIFLUOPERAZINE HCL 10 MG TABLET PO SCH (20:13)
[2018-03-10 02:44] VITALS: BP 120/78
[2018-03-10] MEDS: MetFORMIN HCL 500 MG TABLET PO SCH ×3 (07:00→16:40)
[2018-03-10 07:08] LABS: GLUCOMETER DEV NAME(LOC) BV2N3; GLUCOSE,POINT OF CARE 138 MG/DL (70-110)
[2018-03-10 08:14] VITALS: BP 107/75
[2018-03-10 08:38] LABS: BASOPHILS % (AUTO) 0.6 % (0.0-2.0); HEMATOCRIT 43.6 % (41-53); HEMOGLOBIN 14.6 g/dL (13.5-17.5); LYMPHOCYTES # (AUTO) 1.6 K/uL (1.0-4.8); MEAN CORPUSCULAR HEMOGLOBIN 29.9 pg (26.0-34.0); MEAN CORPUSCULAR HGB CONC 33.5 G/dL (31.0-37.0); MEAN CORPUSCULAR VOLUME 89 fL (80-100); MONOCYTES # (AUTO) 0.9 K/uL (0.1-1.0); MONOCYTES % (AUTO) 10.6 % (2.0-9.0); NEUTROPHILS % (AUTO) 68.8 % (40.0-70.0); PLATELET COUNT (AUTO) 302 K/uL (150-450); RED BLOOD CELL COUNT(AUTO) 4.89 MIL/uL (4.50-5.90); RED CELL DISTRIBUTION WIDTH 14.8 % (11.5-14.5)
[2018-03-10 08:40] VITALS: BP 126/73
[2018-03-10] MEDS: CHOLECALCIFEROL (VIT D3) 1,000 UNITS TABLET PO SCH (08:40)
[2018-03-10] MEDS: ESCITALOPRAM OXALATE 10 MG TABLET PO SCH (08:41)
[2018-03-10] MEDS: LISINOPRIL 20 MG TABLET PO SCH (08:41)
[2018-03-10] MEDS: ASPIRIN 81 MG EC TABLET PO SCH (08:41)
[2018-03-10 09:12] LABS: ALANINE AMINOTRANSFERASE 15 U/L (12-78); ALBUMIN 2.5 g/dL (3.4-5.0); ALKALINE PHOSPHATASE 88 U/L (46-116); ANION GAP 4 mmol/L (8-16); ASPARTATE AMINOTRANSFERASE 13 U/L (15-37); BILIRUBIN,TOTAL 0.3 mg/dL (0.1-1.0); CALCIUM, TOTAL 8.4 mg/dL (8.8-10.5); CARBON DIOXIDE 34 mmol/L (22-29); CHLORIDE 104 mmol/L (98-107); CHOL/HDL RATIO 6.6 (4.2-7.3); CHOLESTEROL 184 mg/dL (131-200); CREATININE 0.97 mg/dL (0.60-1.30); GLOMERULAR FILTR. RATE CALC > 60 mL/min (>60); GLUCOSE,RANDOM 143 mg/dL (70-110); HDL CHOLESTEROL 28 mg/dL (40-60); LDL CHOL (CALC.) 129 mg/dL (0-130); POTASSIUM 3.7 mmol/L (3.5-5.1); SODIUM SERUM 142 mmol/L (136-145); THYROID STIMULATING HORMONE 3.41 uIU/mL (0.36-3.74); TOTAL PROTEIN, SERUM 6.9 g/dL (6.4-8.2); TRIGLYCERIDES 134 mg/dL (15-150); UREA NITROGEN, BLOOD 14 mg/dL (7-18)
[2018-03-10 09:48] LABS: AMPHET/METH SCREEN,URINE NEGATIVE (NEGATIVE); BARBITURATE SCREEN, URINE NEGATIVE (NEGATIVE); BENZODIAZEPINES SCREEN,URINE NEGATIVE (NEGATIVE); CANNABINOID SCREEN,URINE NEGATIVE (NEGATIVE); COCAINE SCREEN,URINE NEGATIVE (NEGATIVE); METHADONE SCREEN, URINE NEGATIVE (NEGATIVE); OPIATE SCREEN,URINE NEGATIVE (NEGATIVE)
[2018-03-10 09:49] LABS: PHENCYCLIDINE SCREEN,URINE NEGATIVE (NEGATIVE)
[2018-03-10 09:52] LABS: APPEARANCE,URINE CLOUDY (CLEAR); BILIRUBIN,URINE NEGATIVE (NEGATIVE); GLUCOSE, URINE (UA) >=1000 mg/dL (NEGATIVE); KETONES,URINE NEGATIVE (NEGATIVE); NITRATE,URINE POSITIVE (NEGATIVE); OCCULT BLOOD,URINE SMALL (NEGATIVE); PROTEIN,URINE SEE CONFIRM (NEGATIVE); UROBILINOGEN,URINE 0.2 mg/dL (<=1.0)
[2018-03-10 10:03] LABS: LEUKOCYTE ESTERASE ,URINE LARGE (NEGATIVE)
[2018-03-10 10:05] LABS: BACTERIA,URINE Many /HPF (None Seen); SQUAMOUS EPITHELIAL CELL,UR Moderate /LPF (None Seen); SULFOSALICYLIC ACID,URINE 3+ (Negative); WBC,URINE >100 /HPF (0-5)
[2018-03-10 10:08] LABS: HEMOGLOBIN A1C 6.4 % (4.5-6.2)
[2018-03-10 11:13] LABS: GLUCOMETER DEV NAME(LOC) BV2N3; GLUCOSE,POINT OF CARE 131 MG/DL (70-110)
[2018-03-10 16:30] VITALS: BP 104/60
[2018-03-10] MEDS: CIPROFLOXACIN HCL 500 MG TABLET PO SCH (16:38)
[2018-03-10] MEDS: INSULIN LISPRO 100 UNITS/ML SQ PRN ×2 (16:42→20:39)
[2018-03-10 16:48] LABS: GLUCOMETER DEV NAME(LOC) BV2N3; GLUCOSE,POINT OF CARE 163 MG/DL (70-110)
[2018-03-10] MEDS: SIMVASTATIN 20 MG TABLET PO SCH (20:29)
[2018-03-10] MEDS: TRIFLUOPERAZINE HCL 10 MG TABLET PO SCH (20:30)
[2018-03-10 21:04] LABS: GLUCOMETER DEV NAME(LOC) BV2N3; GLUCOSE,POINT OF CARE 161 MG/DL (70-110)
[2018-03-11 05:17] VITALS: BP 110/68
[2018-03-11] MEDS: INSULIN LISPRO 100 UNITS/ML SQ PRN ×2 (06:51→16:39)
[2018-03-11] MEDS: MetFORMIN HCL 500 MG TABLET PO SCH ×3 (07:00→16:40)
[2018-03-11 07:48] LABS: GLUCOMETER DEV NAME(LOC) BV2N3; GLUCOSE,POINT OF CARE 161 MG/DL (70-110)
[2018-03-11 08:36] VITALS: BP 113/67
[2018-03-11] MEDS: ESCITALOPRAM OXALATE 10 MG TABLET PO SCH (08:39)
[2018-03-11] MEDS: ASPIRIN 81 MG EC TABLET PO SCH (08:40)
[2018-03-11] MEDS: CHOLECALCIFEROL (VIT D3) 1,000 UNITS TABLET PO SCH (08:40)
[2018-03-11] MEDS: LISINOPRIL 20 MG TABLET PO SCH (08:40)
[2018-03-11] MEDS: CIPROFLOXACIN HCL 500 MG TABLET PO SCH ×2 (08:40→16:39)
[2018-03-11 10:58] LABS: GLUCOMETER DEV NAME(LOC) BV2N3; GLUCOSE,POINT OF CARE 137 MG/DL (70-110)
[2018-03-11 16:12] VITALS: BP 114/60
[2018-03-11 16:33] LABS: GLUCOMETER DEV NAME(LOC) BV2N3; GLUCOSE,POINT OF CARE 144 MG/DL (70-110)
[2018-03-11 20:18] LABS: GLUCOMETER DEV NAME(LOC) BV2N3; GLUCOSE,POINT OF CARE 129 MG/DL (70-110)
[2018-03-11] MEDS: TRIFLUOPERAZINE HCL 10 MG TABLET PO SCH (20:36)
[2018-03-11] MEDS: SIMVASTATIN 20 MG TABLET PO SCH (20:36)
[2018-03-12 04:32] VITALS: BP 110/68
[2018-03-12 06:29] LABS: GLUCOMETER DEV NAME(LOC) BV2N3; GLUCOSE,POINT OF CARE 144 MG/DL (70-110)
[2018-03-12] MEDS: INSULIN LISPRO 100 UNITS/ML SQ PRN ×3 (06:31→20:40)
[2018-03-12] MEDS: MetFORMIN HCL 500 MG TABLET PO SCH ×2 (06:52→16:34)
[2018-03-12 08:18] VITALS: BP 104/60
[2018-03-12] MEDS: CIPROFLOXACIN HCL 500 MG TABLET PO SCH ×2 (09:36→16:34)
[2018-03-12] MEDS: ESCITALOPRAM OXALATE 10 MG TABLET PO SCH (09:36)
[2018-03-12] MEDS: ASPIRIN 81 MG EC TABLET PO SCH (09:36)
[2018-03-12] MEDS: CHOLECALCIFEROL (VIT D3) 1,000 UNITS TABLET PO SCH (09:37)
[2018-03-12 09:40] VITALS: BP 110/69
[2018-03-12] MEDS: LISINOPRIL 20 MG TABLET PO SCH (09:40)
[2018-03-12 11:12] LABS: GLUCOMETER DEV NAME(LOC) BV2N3; GLUCOSE,POINT OF CARE 150 MG/DL (70-110)
[2018-03-12 16:08] VITALS: BP 113/71
[2018-03-12 16:17] LABS: GLUCOMETER DEV NAME(LOC) BV2N3; GLUCOSE,POINT OF CARE 126 MG/DL (70-110)
[2018-03-12 20:18] LABS: GLUCOMETER DEV NAME(LOC) BV2N3; GLUCOSE,POINT OF CARE 210 MG/DL (70-110)
[2018-03-12] MEDS: TRIFLUOPERAZINE HCL 10 MG TABLET PO SCH (20:31)
[2018-03-12] MEDS: SIMVASTATIN 20 MG TABLET PO SCH (20:32)
[2018-03-13 06:26] VITALS: BP 116/72
[2018-03-13] MEDS: MetFORMIN HCL 500 MG TABLET PO SCH ×2 (07:00→16:49)
[2018-03-13] MEDS: INSULIN LISPRO 100 UNITS/ML SQ PRN ×3 (07:09→20:33)
[2018-03-13 07:18] LABS: GLUCOMETER DEV NAME(LOC) BV2N3; GLUCOSE,POINT OF CARE 149 MG/DL (70-110)
[2018-03-13 08:00] VITALS: BP 110/66
[2018-03-13] MEDS: ESCITALOPRAM OXALATE 10 MG TABLET PO SCH (08:02)
[2018-03-13] MEDS: CIPROFLOXACIN HCL 500 MG TABLET PO SCH ×2 (08:02→16:46)
[2018-03-13] MEDS: CHOLECALCIFEROL (VIT D3) 1,000 UNITS TABLET PO SCH (08:02)
[2018-03-13] MEDS: LISINOPRIL 20 MG TABLET PO SCH (08:02)
[2018-03-13] MEDS: ASPIRIN 81 MG EC TABLET PO SCH (08:03)
[2018-03-13 11:08] LABS: GLUCOMETER DEV NAME(LOC) BV2N3; GLUCOSE,POINT OF CARE 206 MG/DL (70-110)
[2018-03-13 16:07] VITALS: BP 109/70
[2018-03-13 16:49] LABS: GLUCOMETER DEV NAME(LOC) BV2N3; GLUCOSE,POINT OF CARE 116 MG/DL (70-110)
[2018-03-13] MEDS: TRIFLUOPERAZINE HCL 10 MG TABLET PO SCH (20:24)
[2018-03-13] MEDS: SIMVASTATIN 20 MG TABLET PO SCH (20:24)
[2018-03-13 20:43] LABS: GLUCOMETER DEV NAME(LOC) BV2N3; GLUCOSE,POINT OF CARE 174 MG/DL (70-110)
[2018-03-14] MEDS: MetFORMIN HCL 500 MG TABLET PO SCH ×2 (06:37→16:26)
[2018-03-14 06:54] LABS: GLUCOMETER DEV NAME(LOC) BV2N3; GLUCOSE,POINT OF CARE 134 MG/DL (70-110)
[2018-03-14 06:59] VITALS: BP 108/76
[2018-03-14 08:07] VITALS: BP 123/62
[2018-03-14] MEDS: LISINOPRIL 20 MG TABLET PO SCH (08:20)
[2018-03-14] MEDS: CIPROFLOXACIN HCL 500 MG TABLET PO SCH ×2 (08:20→16:26)
[2018-03-14] MEDS: ASPIRIN 81 MG EC TABLET PO SCH (08:20)
[2018-03-14] MEDS: CHOLECALCIFEROL (VIT D3) 1,000 UNITS TABLET PO SCH (08:20)
[2018-03-14] MEDS: ESCITALOPRAM OXALATE 10 MG TABLET PO SCH (08:20)
[2018-03-14] MEDS: INSULIN LISPRO 100 UNITS/ML SQ PRN ×2 (11:12→20:35)
[2018-03-14 11:18] LABS: GLUCOMETER DEV NAME(LOC) BV2N3; GLUCOSE,POINT OF CARE 171 MG/DL (70-110)
[2018-03-14 16:06] VITALS: BP 101/61
[2018-03-14 16:47] LABS: GLUCOMETER DEV NAME(LOC) BV2N3; GLUCOSE,POINT OF CARE 131 MG/DL (70-110)
[2018-03-14] MEDS: TRIFLUOPERAZINE HCL 10 MG TABLET PO SCH (20:17)
[2018-03-14] MEDS: SIMVASTATIN 20 MG TABLET PO SCH (20:17)
[2018-03-14 20:38] LABS: GLUCOMETER DEV NAME(LOC) BV2N3; GLUCOSE,POINT OF CARE 173 MG/DL (70-110)
[2018-03-15 06:12] VITALS: BP 116/69
[2018-03-15] MEDS: MetFORMIN HCL 500 MG TABLET PO SCH (07:00)
[2018-03-15] MEDS: INSULIN LISPRO 100 UNITS/ML SQ PRN (07:04)
[2018-03-15 07:13] LABS: GLUCOMETER DEV NAME(LOC) BV2N3; GLUCOSE,POINT OF CARE 174 MG/DL (70-110)
[2018-03-15 09:03] VITALS: BP 118/66
[2018-03-15] MEDS: LISINOPRIL 20 MG TABLET PO SCH (09:07)
[2018-03-15] MEDS: CHOLECALCIFEROL (VIT D3) 1,000 UNITS TABLET PO SCH (09:08)
[2018-03-15] MEDS: ESCITALOPRAM OXALATE 10 MG TABLET PO SCH (09:08)
[2018-03-15] MEDS: ASPIRIN 81 MG EC TABLET PO SCH (09:08)
[2018-03-15] MEDS: CIPROFLOXACIN HCL 500 MG TABLET PO SCH (09:08)
[2018-03-15 11:08] LABS: GLUCOMETER DEV NAME(LOC) BV2N3; GLUCOSE,POINT OF CARE 119 MG/DL (70-110)
[2018-03-15] MEDS ORDERED: METF1000 PO (11:33)
[2018-03-15] MEDS ORDERED: CIPR-279 PO (11:33)
== END 2018-03-15 13:20 | disposition home or self-care (01) | DRG 885 ==
LOC: EDBD → B2X 14:56
PROVIDERS: ADMIT Psychiatry & Neurology Child & Adolescent Psychiatry; ATTEND Psychiatry & Neurology Child & Adolescent Psychiatry
PROC: 3E0234Z Introduction of Serum, Toxoid and Vaccine into Muscle, Percutaneous Approach (ICD-10-PCS; principal; 2018-03-09)
DX: F20.0 Paranoid schizophrenia (principal); N39.0 Urinary tract infection, site not specified; D64.9 Anemia, unspecified; E11.9 Type 2 diabetes mellitus without complications; E55.9 Vitamin D deficiency, unspecified; E78.5 Hyperlipidemia, unspecified; F17.200 Nicotine dependence, unspecified, uncomplicated; F41.9 Anxiety disorder, unspecified; G40.909 Epilepsy, unspecified, not intractable, without status epilepticus; G47.00 Insomnia, unspecified; F19.10 Other psychoactive substance abuse, uncomplicated; I10 Essential (primary) hypertension; J45.909 Unspecified asthma, uncomplicated; K59.09 Other constipation; R15.9 Full incontinence of feces; Z79.82 Long term (current) use of aspirin; Z23 Encounter for immunization; Z88.2 Allergy status to sulfonamides; Z88.1 Allergy status to other antibiotic agents; Z88.8 Allergy status to other drugs, medicaments and biological substances; Z71.6 Tobacco abuse counseling; Z79.899 Other long term (current) drug therapy; Z91.19 Patient's noncompliance with other medical treatment and regimen; Z71.51 Drug abuse counseling and surveillance of drug abuser
CPT/HCPCS: 80307; 83036; 84439; 84443; 87086; J3535

== ENCOUNTER 2018-08-24 12:39 | Emergency (ER) | payer MEDICARE, OTHER ==
[~2018-08-24] VITALS: Ht 172.7 cm; Wt 99.6 kg
[~2018-08-24 12:39] MED LIST changes: +CIPR-279 PO; -DSS100 PO; -ESCI10TA54 PO; -METF-960 PO; +METF1000 PO
[2018-08-24 13:14] LABS: GLUCOSE,POINT OF CARE 510 MG/DL (70-110)
[2018-08-24] MEDS ORDERED: SODIUM CHLORIDE 0.9% 1,000 ML IV ONE ×2 (13:30→14:15)
[2018-08-24 13:36] LABS: BASOPHILS % (AUTO) 0.5 % (0.0-2.0); EOSINOPHILS % (AUTO) 1.1 % (1.0-6.0); HEMATOCRIT 39.8 % (41-53); HEMOGLOBIN 13.1 g/dL (13.5-17.5); MEAN CORPUSCULAR HEMOGLOBIN 30.1 pg (26.0-34.0); MEAN CORPUSCULAR HGB CONC 32.9 G/dL (31.0-37.0); MEAN CORPUSCULAR VOLUME 91 fL (80-100); MONOCYTES # (AUTO) 0.7 K/uL (0.1-1.0); MONOCYTES % (AUTO) 9.2 % (2.0-9.0); NEUTROPHILS # (AUTO) 5.8 K/uL (1.8-7.7); NEUTROPHILS % (AUTO) 76.2 % (40.0-70.0); PLATELET COUNT (AUTO) 204 K/uL (150-450); RED BLOOD CELL COUNT(AUTO) 4.35 MIL/uL (4.50-5.90); RED CELL DISTRIBUTION WIDTH 13.4 % (11.5-14.5)
[2018-08-24 13:42] LABS: APPEARANCE,URINE TURBID (CLEAR); BILIRUBIN,URINE NEGATIVE (NEGATIVE); GLUCOSE, URINE (UA) >=1000 mg/dL (NEGATIVE); KETONES,URINE NEGATIVE (NEGATIVE); LEUKOCYTE ESTERASE ,URINE LARGE (NEGATIVE); NITRATE,URINE NEGATIVE (NEGATIVE); OCCULT BLOOD,URINE LARGE (NEGATIVE); PROTEIN,URINE POS 1+ (NEGATIVE); UROBILINOGEN,URINE 0.2 mg/dL (<=1.0)
[2018-08-24 13:51] LABS: ACETONE,BLOOD NEGATIVE (NEGATIVE)
[2018-08-24 13:55] LABS: BACTERIA,URINE Few /HPF (None Seen)
[2018-08-24 13:56] LABS: WBC,URINE Full Field /HPF (0-5)
[2018-08-24 13:57] LABS: ALANINE AMINOTRANSFERASE 12 U/L (12-78); ALBUMIN 2.6 g/dL (3.4-5.0); ALKALINE PHOSPHATASE 129 U/L (46-116); ANION GAP 6 mmol/L (8-16); ASPARTATE AMINOTRANSFERASE 9 U/L (15-37); BILIRUBIN,TOTAL 0.3 mg/dL (0.1-1.0); CALCIUM, TOTAL 8.8 mg/dL (8.8-10.5); CARBON DIOXIDE 32 mmol/L (22-29); CHLORIDE 99 mmol/L (98-107); CREATININE 1.15 mg/dL (0.60-1.30); GLOMERULAR FILTR. RATE CALC > 60 mL/min (>60); POTASSIUM 4.3 mmol/L (3.5-5.1); SODIUM SERUM 137 mmol/L (136-145); TOTAL PROTEIN, SERUM 6.5 g/dL (6.4-8.2); UREA NITROGEN, BLOOD 22 mg/dL (7-18)
[2018-08-24 14:00] LABS: GLUCOSE,RANDOM 446 mg/dL (70-110)
[2018-08-24] MEDS ORDERED: INSULIN REGULAR, HUMAN 100 UNITS/ML IVP ONE (14:15)
[2018-08-24 16:09] LABS: GLUCOSE,POINT OF CARE > 600 MG/DL (70-110)
[2018-08-24 17:24] LABS: GLUCOSE,POINT OF CARE 135 MG/DL (70-110)
[2018-08-24 18:10] VITALS: BP 118/77
== END 2018-08-24 18:34 | disposition home or self-care (01) ==
LOC: EMS 12:40
DX: E11.65 Type 2 diabetes mellitus with hyperglycemia (principal); N39.0 Urinary tract infection, site not specified; B86 Scabies; I10 Essential (primary) hypertension; E78.00 Pure hypercholesterolemia, unspecified; J44.9 Chronic obstructive pulmonary disease, unspecified; F20.9 Schizophrenia, unspecified; F17.210 Nicotine dependence, cigarettes, uncomplicated; Z88.2 Allergy status to sulfonamides; Z88.8 Allergy status to other drugs, medicaments and biological substances; Z79.82 Long term (current) use of aspirin; Z79.84 Long term (current) use of oral hypoglycemic drugs; Z79.899 Other long term (current) drug therapy
CPT/HCPCS: 36415; 71045; 80053; 81001; 82009; 82962; 85025; 87086; 93005; 96361; 96374; 99284; 99406; J1815; J7030